=== PATIENT | male | born 1995 | race Caucasian/White ===

== ENCOUNTER 2025-08-17 21:03 | Emergency (ER) | payer SELFPAY | END 2025-08-17 22:18 | disposition left against medical advice (07) | LOC: ER 21:04 | DX: M79.604 Pain in right leg (principal); Z53.21 Procedure and treatment not carried out due to patient leaving prior to being seen by health care provider ==

== ENCOUNTER 2025-09-02 09:36 | Emergency (ER) | payer MEDICAID ==
[~2025-09-02] VITALS: Ht 160 cm; Wt 59.1 kg
[2025-09-02 09:51] VITALS: BP 116/68; PULSE 79; RESP 14; TEMP 97.7; O2SAT 100
[2025-09-02 10:22] LABS: MEAN PLATELET VOLUME 7.2 FL (7.4-10.4); RED CELL DISTRIBUTION WIDTH 14.1 % (11.5-14.5)
[2025-09-02 10:34] LABS: CREATININE 0.73 MG/DL (0.60-1.10); TOTAL CARBON DIOXIDE 27.9 MMOL/L (24-32); eCRCL 119 ML/MIN; eGFR > 90 ML/MIN
[2025-09-02] MEDS ORDERED: SULF-16 PO (10:59)
--- NOTE | 2025-09-02 10:59 | Physician Documentation ---
History of Present Illness ~ Chief Complaint: See Chief Complaint Stated Complaint: BACK PAIN Time Seen by MD: 10:07 HPI Reports is traveling through in his trying to get to [place]. He is requesting some milk. He reports that he is very fatigued and he has muscle sor eness. He also has multiple open sores to bilateral extremities. He reports that a sore on his right forearm opened up and drained pus today. He has any fevers, nausea, vomiting or diarrhea. Medication Reconciliation Allergies: Coded Allergies: No Known Allergies (Unverified , 09/02/25) Scheduled Sulfamethoxazole/Trimethoprim (Mayra Ds Tab), 1 TAB PO Q12H Review of Systems All Other Systems at this time: Reviewed and Negative Physical Exam Vital Signs: RN Vital Signs have been reviewed: Yes, Temperature: 97.7, Source: Temporal, Heart Rate: 79, Respiratory Rate: 14, BP: 116/68, Pulse Oximetry: 100, Weight: 59.090 Pulse Oximetry Reflects: adequate oxygenation Physical Exam General: Alert, no distress. HEENT: No injection, moist mucous membranes. Neck: Full range of motion. Respiratory: No respiratory distress, equal chest rise and fall. Lungs clear bilaterally Chest: No accessory muscle use. Cardiovascular: Regular rate and rhythm. Gastrointestinal: Nondistended. Extremities: Normal range of motion, no deformity. Neurologic: Oriented x4. Psychiatric: Normal mood and affect. Skin: Has multiple open sores with crusting to bilateral extremities. There is erythema and tenderness around each site. No active drainage. Progress Results/Orders Reviewed/noted all lab results: Yes Results/Orders Completed Orders - MIR WEEKS MD Cbc/Diff (09/02/25 09:58) CMP (09/02/25 09:58) Ua W/Microscopic, Cult If Ind (09/02/25 11:00) Medications Received in ER Medications (Trade) Dose Ordered Sig/Jr Route PRN Reason Start Time Stop Time Status Last Admin Dose Admin (Mayra DS tab) 1 tab ONCE ONCE PO 09/02/25 11:00 09/02/25 11:01 DC 09/02/25 11:05 1 TAB Vital Signs 09/02/25 09:51 Temp 97.7 Pulse 79 Resp 14 B/P (MAP) 116/68 Pulse Ox 100 Laboratory Tests Test 09/02/25 10:09 09/02/25 11:00 White Blood Count 8.8 Red Blood Count 4.35 L Hemoglobin 13.2 L Hematocrit 39.7 L Mean Corpuscular Volume 91.4 Mean Corpuscular Hemoglobin 30.5 Mean Corpuscular Hemoglobin Concent 33.3 Red Cell Distribution Width 14.1 Platelet Count 355 Mean Platelet Volume 7.2 L Neutrophils (%) (Auto) 69.9 Lymphocytes (%) (Auto) 21.1 Monocytes (%) (Auto) 7.4 Eosinophils (%) (Auto) 0.7 Basophils (%) (Auto) 0.9 Neutrophils # (Auto) 6.1 Lymphocytes # (Auto) 1.8 Monocytes # (Auto) 0.6 Eosinophils # (Auto) 0.1 Basophils # (Auto) 0.1 CBC Comment Sodium Level 141 Potassium Level 3.7 Chloride Level 105 Carbon Dioxide Level 27.9 Anion Gap 8 Blood Urea Nitrogen 11 Creatinine 0.73 Estimated GFR/1.73 m2 > 90 BUN/Creatinine Ratio 15.1 Glucose Level 140 H Calcium Level 8.3 L Total Bilirubin 0.2 Aspartate Amino Transf (AST/SGOT) 22 Alanine Aminotransferase (ALT/SGPT) 26 Alkaline Phosphatase 79 Total Protein 7.7 Albumin 3.3 L Globulin 4.4 H Albumin/Globulin Ratio 0.8 L Chemistry Comments Urine Specimen Description Non-specified Urine Color Yellow Urine Clarity Clear Urine pH 7.5 Urine Specific [place] 1.010 Urine Protein Negative Urine Glucose (UA) Negative Urine Ketones Negative Urine Occult Blood Moderate H Urine Nitrite Negative Urine Bilirubin Negative Urine Urobilinogen 0.2 Urine Leukocyte Esterase Negative Urine RBC 3-10 Urine WBC 0-4 Urine Squamous Epithelial Cells Few Urine Bacteria None seen Urine Mucus None seen Urine Culture Indicated Not ind Volume Urine Centrifuged 10 ml Urine Comment Medical Decision Making Additional information obtaine: old records Findings There appears to be multiple sores all over his extremities possibly due to meth exposure. He denies drug use. There is some erythema around a couple of the spots that are also tender to palpation so I have placed him on Bactrim. He reports that 1 of them opened up and drained a purulent fluid so for this reason I will treat him with the antibiotic. First dose given here rest sent to the pharmacy. We discussed malnutrition and his labs showed slightly low calcium, hemoglobin an albumin. Differential Dx:Considerations: Include: Atopic dermatitis, Herpes zoster, Impe tigo, Psoriaisis, Scabies, Scarlet fever Additional Comment Homelessness, illicit substance use. Departure Disposition: HOME / SELF CARE / HOMELESS Impression: Primary Impression: Skin infection Additional Impressions: Anemia Hypocalcemia Malnutrition Condition: Stable Additional Instructions: Please attempt to eat regular meals. Follow up with her primary care provider in the next week and return back here for any new or worsening symptoms. Please take all antibiotics as prescribed and finish the course. Referrals: NO PRIMARY CARE PROVIDER (PCP) Prescriptions Sulfamethoxazole/Trimethoprim (Septra Ds Tab) 800 Mg/160 Mg Tablet 1 TAB PO Q12H for 10 Days, #20 TAB Prov: WENDY BAKER 09/02/25 Education Educated: Patient Educated regarding: diagnosis, treatment, prognosis, need for follow up Additional Comment Medical Screen Exam This patient recieved a medical screening examination. After reviewing the individual's medical complaints with presenting symptoms and performing an appropriate physical examination, it was determined that no immediate life- threatening emergency medical condition is present. This individual is also not a women having contractions. I have reviewed this case [id number] with the PA, including physical examination, laboratory and imaging results as appropriate. The patient was evaluated [id number] and I agree with the PA's notes. I agree with the findings, evaluation and disposition. Signature Scribe Signature: . Attestation: Scribed for Wendy Baker by Wendy Baker - LANA . 09/02/25 11:47 Parts of this note were created using [employer] voice recognition software program. While efforts were made to correct any mistakes made by this voice recognition software program, nonsensical phrases may remain in this note. In addition, there may be errors and syntax, grammar, content and spelling. WENDY BAKER Sep 02, 2025 10:59 MIR WEEKS MD Sep 02, 2025 18:29
[2025-09-02] MEDS: sulfamethoxazole/trimethoprim DS (800/160mg) tablet PO ONE (11:05)
[2025-09-02 11:58] LABS: LEUKOCYTE ESTERASE ,URINE NEGATIVE (Neg); NITRITES, URINE NEGATIVE (Neg); OCCULT BLOOD,URINE MODERATE (Neg)
[2025-09-02 12:08] LABS: UA COLLECTION TYPE NON-SPECIFIED
[2025-09-02 12:09] LABS: MUCUS STRANDS NONE SEEN /LPF (Neg); SQUAMOUS EPITHELIAL CELL,UR FEW /LPF (FEW)
== END 2025-09-02 11:17 | disposition home or self-care (01) ==
LOC: ER 09:36
DX: L08.9 Local infection of the skin and subcutaneous tissue, unspecified (principal); E83.51 Hypocalcemia; E46 Unspecified protein-calorie malnutrition; D64.9 Anemia, unspecified; Z79.899 Other long term (current) drug therapy
CPT/HCPCS: 36415; 80053; 81001; 85025; 99283

== ENCOUNTER 2025-09-22 20:13 | Emergency (ER) | payer MEDICAID ==
[~2025-09-22] VITALS: Ht 160 cm; Wt 55.0 kg
[2025-09-22 20:15] VITALS: BP 120/70; PULSE 88; RESP 16; TEMP 98; O2SAT 99
--- NOTE | 2025-09-22 20:30 | Physician Documentation ---
History of Present Illness ~ Chief Complaint: Rash Stated Complaint: BITE INSECT Time Seen by MD: 20:24 OK to notify your PCP?: Yes Source: patient Mode of Arrival: POV Exam Limitations: no limitations HPI Patient report having an itchy rash all over his body which is worse at nighttime. Unable to say how long he has had this rash. Denies any fevers. Medication Reconciliation Allergies: Coded Allergies: No Known Allergies (Unverified , 09/02/25) Scheduled Permethrin 5% Cream* (Elimite 5% Cream*), 1 APPLIC TOP ONCE Review of Systems All Other Systems at this time: Reviewed and Negative Physical Exam Vital Signs: RN Vital Signs have been reviewed: Yes, Temperature: 98.0, Heart Rate: 88, Respiratory Rate: 16, BP: 120/70, Pulse Oximetry: 99, Weight: 55.000 Oxygen Flow Rate: 0 Pulse Oximetry Reflects: adequate oxygenation Physical Exam General: Alert, no distress. HEENT: No injection, moist mucous membranes. Neck: Full range of motion. Respiratory: No respiratory distress, equal chest rise and fall. Chest: No accessory muscle use. Cardiovascular: Regular rate and rhythm. Gastrointestinal: Nondistended. Extremities: Normal range of motion, no deformity. Neurologic: Oriented x4. Psychiatric: Normal mood and affect. Skin: Small papular with some excoriated skin all over body including in between fingers and toes. It is in a linear pattern Progress Results/Orders Reviewed/noted all lab results: Yes Results/Orders Orders - WENDY [facility] Permethrin Topical Cream (Elimite Cream (09/22/25 20:35) Vital Signs 09/22/25 20:15 Temp 98.0 Pulse 88 Resp 16 B/P (MAP) 120/70 Pulse Ox 99 O2 Flow Rate 0 Medical Decision Making Additional information obtaine: old records Findings He has a presents with what appears to be a scabies rash throughout his body. He reports that he is homeless and not living in the best living conditions. First of permethrin provided in the department. I sent in the prescription to his pharmacy in case his rash is not clear up he can repeat in 1 week. No signs of infection that would require an antibiotic. Differential Dx:Considerations: Include: Abscess, Candidiasis, Drug reaction, Erysipelas, Herpes zoster, Herpes simplex, Impetigo, Intertrigo, Molluscum contagiosum, Pityriasis rosea, Psoriaisis, Scarlet fever, Viral exanthema Departure Disposition: 01 HOME / SELF CARE / HOMELESS Impression: Primary Impression: Scabies Condition: Stable Discharge Instructions: Scabies, Adult Additional Instructions: We did a first-time treatment while here were here in the department. If your rash is not clear up please repeat in 1 week. Return back here for any new or worsening symptoms. Referrals: NO PRIMARY CARE PROVIDER (PCP) Prescriptions Permethrin 5% Cream* (Elimite 5% Cream*) 60 Gm Cream.gm. 1 APPLIC TOP ONCE, #60 GM massage into skin from head to soles of feet one time, leave on for 8-14 hours then remove by thorough washing Prov: WENDY WILLIS 09/22/25 Education Educated: Patient Educated regarding: diagnosis, treatment, prognosis, need for follow up Additional Comment Medical Screen Exam This patient recieved a medical screening examination. After reviewing the individual's medical complaints with presenting symptoms and performing an appropriate physical examination, it was determined that no immediate life-threatening emergency medical condition is present. This individual is also not a women having contractions. Signature Scribe Signature: . Attestation: Scribed for Emergency,Department by Wendy Valdivia NP . 09/22/25 20:28 Parts of this note were created using [employer] voice recognition software program. While efforts were made to correct any mistakes made by this voice recognition software program, nonsensical phrases may remain in this note. In addition, there may be errors and syntax, grammar, content and spelling. WENDY WILLISP Sep 22, 2025 20:30
[2025-09-22] MEDS ORDERED: PERM60CR27 TOP (20:31)
[2025-09-22] MEDS: Permethrin Cream 60gm TP ONE (20:54)
== END 2025-09-22 20:59 | disposition home or self-care (01) ==
LOC: ER 20:13
DX: B86 Scabies (principal); Z79.899 Other long term (current) drug therapy
CPT/HCPCS: 99283